=== PATIENT | female | born 2000 | race Caucasian/White ===

== ENCOUNTER 2023-02-27 19:26 | Emergency (ER) | payer OTHER ==
[2023-02-27 19:31] VITALS: BP 127/67; PULSE 95; RESP 18; TEMP 98.9; BMI 34.4
[2023-02-27] MEDS ORDERED: IBUPROFEN 600 MG TABLET (FP) PO ONE ×2 (20:35→20:47)
== END 2023-02-27 20:48 | disposition home or self-care (01) ==
LOC: JER 19:26
DX: S93.492A Sprain of other ligament of left ankle, initial encounter (principal); M25.572 Pain in left ankle and joints of left foot; M25.472 Effusion, left ankle; X50.0XXA Overexertion from strenuous movement or load, initial encounter; Y93.9 Activity, unspecified; Y92.009 Unspecified place in unspecified non-institutional (private) residence as the place of occurrence of the external cause
CPT/HCPCS: 73610-TC-LT-FY; 99283-25

== ENCOUNTER 2023-09-25 16:18 | Emergency (ER) | payer OTHER ==
[2023-09-25 16:26] VITALS: BP 127/65; PULSE 104; RESP 20; TEMP 98.2; BMI 34.0
[2023-09-25] MEDS ORDERED: KETOROLAC TROMETHAMINE 30 MG/1 ML VIAL IM ONE (17:47)
== END 2023-09-25 18:27 | disposition home or self-care (01) ==
LOC: JERFT 16:18
PROC: 3E0233Z Introduction of Anti-inflammatory into Muscle, Percutaneous Approach (ICD-10-PCS; principal; 2023-09-25)
DX: S93.432A Sprain of tibiofibular ligament of left ankle, initial encounter (principal); S93.602A Unspecified sprain of left foot, initial encounter; R22.42 Localized swelling, mass and lump, left lower limb; X50.1XXA Overexertion from prolonged static or awkward postures, initial encounter; W01.0XXA Fall on same level from slipping, tripping and stumbling without subsequent striking against object, initial encounter
CPT/HCPCS: 73610-TC-LT-FY; 73630-TC-LT; 96372; 99284-25